=== PATIENT | female | born 1995 | race Caucasian/White ===

== ENCOUNTER 2017-06-13 08:37 | Emergency (ER) | payer BC, OTHER ==
[~2017-06-13 08:37] MED LIST: CEPH500 PO; PERC5TAB12 PO; POTA1TAB4 PO
[2017-06-13 09:00] VITALS: RESP 16; TEMP 98.8
[2017-06-13] MEDS ORDERED: ACETAMINOPHEN 325 MG TAB PO ONE (09:15)
--- NOTE | 2017-06-13 09:43 | PD ---
HPI Chief Complaint headache, nausea Date Seen: Jun 13, 2017 (Kevin Cervantes MD, R3) Travel History International Travel<30 Days: No Contact w/Intl Traveler<30Days: No (Kevin Cervantes MD, R3) History of Present Illness HPI Ms. Narayanan is a 21 yo at 30 1/7 weeks GA (LIVIA 08/21/2017) patient of Caridad Barrera who presents with nausea and headache. Patient reports that she began feeling "sick" yesterday evening after appointment with Caridad Barrera; she vomited one time at approximately 8 PM. Patient has since felt nauseous. Yesterday evening, she also began to have a headache which she describes as on both sides of her head in temporal area. Patient reports chronic visual blurriness but none associated with headache. Patient does not report any history of gestational her chronic hypertension. Patient does not report any extremity numbness or tingling. No neck stiffness. No fevers. Patient does not report any abdominal pain in association with nausea. Patient has normal stools. No recent sick contacts. Patient has not attempted to alleviate headaches yet; she was out of Tylenol. Patient reports history of pyelonephritis/urinary tract infections years prior but does not report any recent urinary symptoms. Patient does not report chest pain, shortness of breath, or leg swelling. Patient reports normal movement. No vaginal bleeding/discharge. Patient reports that she has had an unremarkable with exception of being told by Caridad Barrera that she has a fundal height discrepancy; patient plans to have repeat ultrasonography performed today at outpatient center. records reviewed: Hgb 9.4 (05/31/17), Blood A+, no infectious disease history (HIV, Hep B, Syphilis, or C/GC). US 04/23 (~22-23 weeks GA)- EFW 544.5gm, 49th%ile, BARBARA 10.5cm Weeks Gestation: 30 Para: 2 : 3 (Kevin Cervantes MD, R3) History Past Medical History Narrative Medical Prior UTIs requiring hospitalization/pyelonephritis (Kevin Cervantes MD, R3) Obstetric History Obstetric History 002 Two postterm pregnancies 2 and 5 years prior (Kevin Cervantes MD, R3) Past Surgical History Narrative Surgical Cholecystectomy 2012 (Kevin Cervantes MD, R3) Family History Narrative Family History Unspecified cervical cancer (Kevin Cervantes MD, R3) Social History Narrative Social History Patient denies current alcohol, tobacco use, or illicit drug use Patient reports marijuana use earlier in (Kevin Cervantes MD, R3) Allergies-Medications (Allergen,Severity, Reaction): Coded Allergies: ibuprofen (Unverified Allergy, Severe, 01/16/17) LIVER ENZYMES WENT CRAZY Home Meds Active Scripts Ondansetron Odt (Zofran Odt) 4 Mg Tab, 4 MG SL Q8HR Y for Nausea/Vomiting, #10 TAB 0 Refills Prov:Kevin Cervantes MD, R3 06/13/17 Acetaminophen (Tylenol) 325 Mg Tab, 650 MG PO Q6H Y for HEADACHE, #30 TAB 0 Refills Prov:Kevin Cervantes MD, R3 06/13/17 Cephalexin Monohydrate (Keflex 500 mg Cap) 500 Mg Cap, 500 MG PO TID for 14 Days , CAP Prov:Jean Rosario MD 08/05/15 Oxycodone-Acetaminophen 5-325 mg (Percocet 5-325 mg) Oxycodone 5/325 Acetaminophen Tab, 1-2 TAB PO Q6H Y for PAIN, #15 TAB Prov:Jean Rosario MD 08/05/15 Potassium Chloride (K-Tab) 20 Meq Tab, 1 TAB PO BID for 2 Days Prov:Jean Rosario MD 08/05/15 Review of Systems General / Constitutional: No: Fever, Chills Eyes: Blurred Vision (chronic) HENT: Headaches (recent) Cardiovascular: No: Chest Pain or Discomfort Respiratory: No: Short of Breath Gastrointestinal: Nausea, Vomiting (1 last night) Genitourinary: No: Urgency, Dysuria Skin: No Rash, No Itching Neurologic: No: Weakness, Dizziness Psychiatric: No: Anxiety, Depression (Kevin Cervantes MD, R3) Physical Exam T98.8 BP 125/81 HR 94 Narrative GENERAL: Well-nourished, well-developed patient. SKIN: Warm and dry. HEAD: Normocephalic and atraumatic. EYES: No scleral icterus. No injection or drainage. EOM grossly I. PERRLA. NECK: No neck stiffness. No lymphadenopathy or thyromegaly CARDIOVASCULAR: Regular rate and rhythm without murmurs. Normal peripheral perfusion RESPIRATORY: CTAB, normal rate ABDOMEN/GI: Abdomen soft, non-tender, bowel sounds present Gravid EXTREMITIES: No calf asymmetry or LE edema NEUROLOGICAL: Awake and alert. Motor and sensory function grossly within normal limits. GENITOURINARY: Uterine Contractions: None on CTG FHT's: Category: 1 Baseline: 130 Reactive: Y Variability: Mod Decels: None (Kevin Cervantes MD, R3) Data Data Vital Signs Reviewed: Yes (Kevin Cervantes MD, R3) MDM Medical Record Reviewed: Yes Narrative Course / MDM 21 yo at 30 1/7 weeks GA patient of Caridad Barrera who presents with nausea and headache -Cat 1 rhythm -No suggestion of contractions on CTG -Physical exam benign; no neurologic symptoms -Normotensive (125/81) Assessment/Plan: Headache Impression: Patient normotensive. Bilateral/temporal headaches with benign exam ; seemingly suggestive of tension headaches -Will give Tylenol 650mg x1 Nausea/vomiting Impression: Nausea resolved; vomit x1 episode last night -Since symptoms resolved, patient deemed stable for follow-up with Caridad Barrera routinely -Patient encouraged to hydrate aggressively during Review of records: -Mild anemia (Hgb <10.5)- will advise ferrous sulfate 325mg daily -BARBARA 10.5 cm on 04/23 US; advise follow-up US (patient states she will get today ) Plan Interval: Patient reported vomiting her Tylenol was was given Zofran 4mg ODT Patient reported improvement in headache Updated plan: Patient feels safe for discharge home on Tylenol and limited Zofran. She will consider Tums/Ranitidine for acid reflux and will return to OB ED if nausea/ vomiting recurs or if headache recurs/worsens. She will take Tylenol for headache at home DW Dr. Mercado and Dr. Wall (Kevin Cervantes MD, R3) Attending Attestation The patient was seen and examined with the resident and I performed all gtz decision making. (Pepper Mercado MD) Diagnosis Diagnosis: Primary Impression: 30 weeks gestation of Additional Impressions: Headache in Nausea and vomiting Disposition: 01 DISCHARGE HOME Condition: Stable Scripts Ondansetron Odt (Zofran Odt) 4 Mg Tab 4 MG SL Q8HR Y for Nausea/Vomiting, #10 TAB 0 Refills Prov: Kevin Cervantes MD, R3 06/13/17 Acetaminophen (Tylenol) 325 Mg Tab 650 MG PO Q6H Y for HEADACHE, #30 TAB 0 Refills Prov: Kevin Cervantes MD, R3 06/13/17 Patient Instructions: General Instructions, Nausea and Vomiting in ( ED) Kevin Cervantes MD, R3 Jun 13, 2017 09:43 Pepper Mercado MD Jun 20, 2017 15:02
[2017-06-13] MEDS ORDERED: ONDANSETRON ODT 4 MG TAB PO ONE (10:15)
[2017-06-13] MEDS ORDERED: TYLE325T PO (10:24)
[2017-06-13] MEDS ORDERED: ZOFR4TAB3 SL (10:24)
== END 2017-06-13 11:15 | disposition home or self-care (01) ==
LOC: HOBED 08:37
DX: R51 Headache (principal); O26.893 Other specified pregnancy related conditions, third trimester; O99.013 Anemia complicating pregnancy, third trimester; R11.2 Nausea with vomiting, unspecified; Z3A.30 30 weeks gestation of pregnancy
CPT/HCPCS: 99283

== ENCOUNTER → 2017-06-28 | Emergency (ER) | payer BC, OTHER ==
[~2017-06-28] MED LIST changes: +ACETAMINOPHEN 500 MG CPLT PO ONE; +PRENTAB7 PO; +TYLE325T PO; +ZOFR4TAB3 SL
--- NOTE | 2017-06-28 12:49 | PD ---
HPI Chief Complaint Cramping and decreased movement Date Seen: Jun 28, 2017 Time Seen: 12:45 Travel History International Travel<30 Days: No Contact w/Intl Traveler<30Days: No Known Affected Area: No History of Present Illness HPI Patient is a 22-year-old at 32 weeks and 2 days who presents to OB triage complaining of lower abdominal cramping and decreased movement since waking up this morning. She established care with Caridad Barrera at 9 weeks gestation. Patient reports cramping in her lower abdomen. Cramps last for approximately 45-60 seconds. She experiences the cramping pain irregularly. Pain has increased in intensity throughout the morning. Patient reports not feeling fetus move at all this morning. Patient has felt fetus move since arriving at OB triage. Patient denies vaginal bleeding and gush of fluid. She reports thick yellow-white discharge. She denies nausea and vomiting. She denies diarrhea and constipation. She reports a normal bowel movement this morning. Patient denies back pain. Patient denies fever. Weeks Gestation: 32 Para: 2 : 3 History Past Medical History Narrative Medical Depression and anxiety Obstetric History Obstetric History G1 - full-term, induced vaginal delivery G2 - full-term, induced vaginal delivery G3 - current Past Surgical History Narrative Surgical Cholecystectomy Family History Family History: Negative Social History Alcohol Use: No Tobacco Use: No Substance Abuse: Yes (marijuana use during first trimester; last use 2 month ago ) Allergies-Medications (Allergen,Severity, Reaction): Coded Allergies: ibuprofen (Unverified Allergy, Severe, 01/16/17) LIVER ENZYMES WENT CRAZY Home Meds Active Scripts Pnv No.95/Ferrous Fum/Folic AC ( Vitamins Tablet) 28 Mg Iron-800 Mcg Tablet, 1 TAB PO DAILY, #30 TAB Prov:Meghan Morgan MD R1 06/28/17 Review of Systems Except as stated in HPI: all other systems reviewed are Neg Physical Exam Narrative GENERAL: Well-nourished, well-developed patient. SKIN: Warm and dry. HEAD: Normocephalic and atraumatic. EYES: No scleral icterus. No injection or drainage. ENT: No nasal drainage noted. Mucous membranes pink. Airway patent. NECK: Supple, trachea midline. No JVD. CARDIOVASCULAR: Regular rate and rhythm without murmurs, gallops, or rubs. RESPIRATORY: Breath sounds equal bilaterally. No accessory muscle use. ABDOMEN/GI: Abdomen soft, non-tender, bowel sounds present, no rebound, no guarding Gravid to 32 weeks size GENITOURINARY: External Genitalia: intact and normal in appearance Dilatation: Closed Effacement: Thick Membranes: Intact Uterine Contractions: Irregular FHT's: Category: 1 Baseline: 140 Reactive: + Variability: Moderate Decels: None EXTREMITIES: No cyanosis or edema. BACK: Nontender without obvious deformity. No CVA tenderness. NEUROLOGICAL: Awake and alert. Motor and sensory grossly within normal limits. Five out of 5 muscle strength in all muscle groups. Normal speech. Data Data Vital Signs Reviewed: Yes Orders Orders Urinalysis - C+S If Indicated (06/28/17 12:46) Vital Signs (Adult) .ON ADMISSION (06/28/17 12:46) ^ Labor Status (06/28/17 12:46) ^ Non Stress Test (06/28/17 12:46) ^ Hydration (06/28/17 12:46) MDM Plan Patient is a 22-year-old at 32 weeks and 2 days who presents to OB triage complaining of lower abdominal cramping and decreased movement since waking up this morning. She established care with Caridad Barrera at 9 weeks gestation. * Continuous monitoring - see PE. * Encourage oral hydration. * UA - grossly within normal limits. * Discharge home. * Tylenol and Fentanyl for pain control. Discussed with OB hospitalist. Diagnosis Diagnosis: Primary Impression: Abdominal cramping Additional Impression: Decreased movement Disposition: DISCHARGE HOME Condition: Stable Scripts Pnv No.95/Ferrous Fum/Folic AC ( Vitamins Tablet) 28 Mg Iron-800 Mcg Tablet 1 TAB PO DAILY, #30 TAB Prov: Meghan Morgan MD R1 06/28/17 Meghan Morgan MD R1 Jun 28, 2017 12:49
[2017-06-28 13:54] LABS: BILIRUBIN, URINE NEG (NEG); BLOOD, URINE NEG (NEG); GLUCOSE,URINE NEG (NEG); KETONE, URINE NEG (NEG); MUCUS URINE FEW /lpf (OCC); NITRITE,URINE NEG (NEG); SQUAMOUS EPITHELIAL CELL URINE 3 /hpf (0-5); URINE COLOR LIGHT-YELLOW (YELLW/STRAW); URINE LEUKOCYTE ESTERASE SMALL (NEG)
[2017-06-28 14:00] LABS: BACTERIA, URINE RARE /hpf
== END | disposition home or self-care (01) ==
LOC: HOBED 10:43
DX: O26.893 Other specified pregnancy related conditions, third trimester (principal); O36.8130 Decreased fetal movements, third trimester, not applicable or unspecified; R10.9 Unspecified abdominal pain; Z3A.32 32 weeks gestation of pregnancy
CPT/HCPCS: 81001; 96372; 99284; J3010

== ENCOUNTER 2017-07-06 21:08 | Emergency (ER) | payer BC, OTHER ==
[~2017-07-06 21:08] MED LIST changes: -ACETAMINOPHEN 500 MG CPLT PO ONE; -CEPH500 PO; -PERC5TAB12 PO; -POTA1TAB4 PO; -TYLE325T PO; -ZOFR4TAB3 SL
--- NOTE | 2017-07-06 22:03 | PD ---
HPI Chief Complaint Back pain ("kidney pain") Travel History International Travel<30 Days: No Contact w/Intl Traveler<30Days: No Known Affected Area: No History of Present Illness HPI 22-year-old 002, IUP at 33.3 care complicated by anxiety, depression, history of kidney infection The patient presents complaining of the onset of bilateral "kidney" pain. However the patient points to her lower lumbar area bilaterally. The patient reports that she has a history of kidney infections but has never had a kidney stone. She reports that the pain initially started at 12 PM and improved however returned at 4:30 to 5 PM. She reports the pain is bilateral but worse on the left comparative to the right. She reports that she took Tylenol at 5 PM but the pain has returned. She reports that she is certain she has a kidney infection. She reports that if she holds a fit fist under her back and this helps otherwise there are no other aggravating, alleviating, or attempted treatments than those discussed. She denies any fever, chills, nausea, vomiting. She denies any other urinary symptoms. She denies any leaking of fluid or vaginal bleeding. She denies any painful contractions or cramping. She reports good movement. The patient stated to the nurse that she is planning to have a primary delivery so she can have a bilateral tubal ligation. She has not discussed this with Caridad Barrera her obstetrical provider. She reports that she has called here "a couple of" times and been told that this would be possible. She has not however has not spoken with the physician about this. Weeks Gestation: 33 Para: 2 : 3 History Past Medical History Narrative Medical Anxiety, depression, history of kidney infection Obstetric History Obstetric History 002 2 Past Surgical History Narrative Surgical Cholecystectomy Family History Family History: Negative Social History Alcohol Use: No Tobacco Use: No Substance Abuse: No Allergies-Medications (Allergen,Severity, Reaction): Coded Allergies: ibuprofen (Unverified Allergy, Severe, 01/16/17) LIVER ENZYMES WENT CRAZY Home Meds Active Scripts Pnv No.95/Ferrous Fum/Folic AC ( Vitamins Tablet) 28 Mg Iron-800 Mcg Tablet, 1 TAB PO DAILY, #30 TAB Prov:Meghan Morgan MD R1 06/28/17 Review of Systems Except as stated in HPI: all other systems reviewed are Neg General / Constitutional: No: Fever, Weight Gain, Weight Loss, Chills, Other Eyes: No: Diploplia, Blurred Vision, Visual changes, Pain, Photophobia, Other HENT: No: Headaches, Vertigo, Dental Difficulties, Lightheadedness, Other Cardiovascular: No: Irregular Rhythm, Chest Pain or Discomfort, Palpitations, Tachycardia, Syncope, Varicosities, Edema, Cyanosis, Other Respiratory: No: Cough, Short of Breath, Wheezing, Other Gastrointestinal: No: Nausea, Vomiting, Diarrhea, Abdominal Pain, Hematemesis, Hematochezia, Constipation, Changes in Bowel Habits, Indigestion, Loss of Appetite, Other Genitourinary: Other (pain), No: Urgency, Frequency, Dysuria, Nocturia, Hematuria, Decreased Urinary Output, Oliguria, Hesitancy, Dribbling, Incontinence, Pelvic Pain, Dyspareunia, Discharge, Menorrhagia, Vaginal Bleeding Musculoskeletal: Pain, No: Limited ROM, Weakness, Cramping, Edema, Other Skin: No Rash, No Itching, No Dryness, No Lumps, No Change in Pigmentation, No Change in Nails, No Alopecia, No Lesions, No Breast Lumps, No Breast Tenderness , No Breast Swelling, No Other Neurologic: No: Weakness, Dizziness, Syncope, Focal Abnormalities, Coordination Problem, Headache, Slurred Speech, Seizures, Other Psychiatric: No: Anxiety, Depression, Suicidal Ideations, Disorder of Thought, Mood Disorder, Substance Abuse, Homicidal Ideation, Other Endocrine: No: Heat Intolerance, Cold Intolerance, Polydipsia, Polyuria, Other Hematologic/Lymphatic: No Easy Bruising, No Lymph Node Enlargement, No Other Physical Exam Narrative GENERAL: Well-nourished, well-developed patient. SKIN: Warm and dry. HEAD: Normocephalic and atraumatic. EYES: No scleral icterus. No injection or drainage. ENT: No nasal drainage noted. Mucous membranes pink. Airway patent. NECK: Supple, trachea midline. No JVD. CARDIOVASCULAR: Regular rate and rhythm without murmurs, gallops, or rubs. RESPIRATORY: Breath sounds equal bilaterally. No accessory muscle use. BREASTS: Deferred ABDOMEN/GI: Abdomen soft, non-tender, bowel sounds present, no rebound, no guarding Gravid GENITOURINARY: Deferred FHT's: heart tones in the 120s with moderate long-term variability, good accelerations, no decelerations noted. This is a category 1 heart rate tracing and reactive NST. EXTREMITIES: No cyanosis or edema. BACK: Nontender without obvious deformity. No CVA tenderness. The patient does have lower lumbar tenderness with palpation, but no CVA tenderness was noted. NEUROLOGICAL: Awake and alert. Motor and sensory grossly within normal limits. Five out of 5 muscle strength in all muscle groups. Normal speech. Musculoskeletal: Grossly normal range of motion, gait, muscle strength Psychiatric: Grossly normal memory and affect Data Data Orders Orders Vital Signs (Adult) .ON ADMISSION (07/06/17 22:) ^ Labor Status (07/06/17:) Urinalysis - C+S If Indicated (07/06/17:) ^ Non Stress Test (07/06/17:) Ob/Psych Drug Screen, Urine (07/06/17:) MDM Plan Assessment/plan: 1. IUP at 33.3 2. Bilateral lumbar pain: No evidence of renal nephrolithiasis or pyelonephritis, no evidence of urinary tract infection. On physical examination the pain appears to be musculoskeletal in etiology. Discussed comfort measures. Advised patient to seek further evaluation treatment in the ED, patient declined. 3. UA: Negative, no evidence of pyelonephritis or nephrolithiasis 4. Reassuring testing with reactive NST and category 1 heart rate tracing. FHR reassuring and appropriate for gestational age. kick counts daily. 5. Patient desires primary delivery with permanent surgical sterilization, discussed with patient that request for permanent surgical sterilization is not an indication for primary delivery. Discussed the many insurance comings will not reimburse for an elective primary delivery without a medical indication. Discussed that the patient needs to discuss this further with her primary obstetrical provider. 6. Follow-up with primary OB in 2-3 days or sooner if needed Diagnosis Diagnosis: Primary Impression: 33 weeks gestation of Additional Impression: Musculoskeletal back pain Disposition: 01 DISCHARGE HOME Condition: Pepper Jorgensen MD Jul 06, 2017 22:03
[2017-07-06 22:35] LABS: BILIRUBIN, URINE NEG (NEG); BLOOD, URINE NEG (NEG); GLUCOSE,URINE NEG (NEG); KETONE, URINE NEG (NEG); NITRITE,URINE NEG (NEG); SQUAMOUS EPITHELIAL CELL URINE 1 /hpf (0-5); URINE COLOR LIGHT-YELLOW (YELLW/STRAW); URINE LEUKOCYTE ESTERASE NEG (NEG)
== END 2017-07-07 03:38 | disposition home or self-care (01) ==
LOC: HOBED 21:08
DX: O26.893 Other specified pregnancy related conditions, third trimester (principal); M54.5 Low back pain; O99.343 Other mental disorders complicating pregnancy, third trimester; F41.9 Anxiety disorder, unspecified; F32.9 Major depressive disorder, single episode, unspecified; Z3A.33 33 weeks gestation of pregnancy; Z88.6 Allergy status to analgesic agent
CPT/HCPCS: 59025; 80307; 81001; 99283; G0481

== ENCOUNTER 2017-08-13 00:12 | Inpatient (IN) | payer OTHER ==
[2017-08-13] VITALS (86 sets, daily range): BP systolic 97–123; BP diastolic 55–86; PULSE 80–120; RESP 16–20; TEMP 97.8–98.2; O2SAT 96–100
[~2017-08-13] VITALS: Ht 172.7 cm; Wt 81.6 kg
--- NOTE | 2017-08-13 01:01 | PD ---
HPI Chief Complaint Contractions Date Seen: Aug 13, 2017 Time Seen: 00:55 Travel History International Travel<30 Days: No Contact w/Intl Traveler<30Days: No Known Affected Area: No History of Present Illness HPI 22-year-old 3 para 2 at 39 weeks gestation who comes for evaluation of contractions. She denies leakage of fluid or bleeding. She reports good movement. History Past Medical History Narrative Medical Anemia Obstetric History Obstetric History 2 prior vaginal deliveries This has been uncomplicated with the exception of anemia. She receives care at [facility]. Past Surgical History Narrative Surgical Cholecystectomy Family History Family History: Negative Social History Alcohol Use: No Tobacco Use: No Substance Abuse: No Allergies-Medications (Allergen,Severity, Reaction): Coded Allergies: No Known Allergies (Verified Allergy, Unknown, 08/13/17) Home Meds Active Scripts Pnv No.95/Ferrous Fum/Folic AC ( Vitamins Tablet) 28 Mg Iron-800 Mcg Tablet, 1 TAB PO DAILY, #30 TAB Prov:Meghan Morgan MD R1 06/28/17 Review of Systems Except as stated in HPI: all other systems reviewed are Neg Physical Exam Narrative GENERAL: Well-nourished, well-developed patient. SKIN: Warm and dry. HEAD: Normocephalic and atraumatic. EYES: No scleral icterus. No injection or drainage. ENT: No nasal drainage noted. Mucous membranes pink. Airway patent. NECK: Supple, trachea midline. No JVD. CARDIOVASCULAR: Regular rate and rhythm without murmurs, gallops, or rubs. RESPIRATORY: Breath sounds equal bilaterally. No accessory muscle use. ABDOMEN/GI: Abdomen soft, non-tender, bowel sounds present, no rebound, no guarding Gravid to [-] weeks size Fundal Height: [-] GENITOURINARY: External Genitalia: intact and normal in appearance BUS glands: [-Negative] Cervix: [-] Dilatation: [Fingertip-] Effacement: [-70] Station: [--2] Presentation: [Vertex-] Membranes: [intact ] Uterine Contractions: [Every 3 to 4-] FHT's: Category: [1-] Baseline: [-] Reactive: [-] Variability: [-] Decels: [-] EXTREMITIES: No cyanosis or edema. BACK: Nontender without obvious deformity. No CVA tenderness. NEUROLOGICAL: Awake and alert. Motor and sensory grossly within normal limits. Five out of 5 muscle strength in all muscle groups. Normal speech. MDM Medical Record Reviewed: Yes Narrative Course / MDM Assessment: 39 week multipara with probable labor prodrome, anemia Plan: Reevaluate for cervical change in 1-2 hours Addendum. Cervical reexamination demonstrates no change. Her contractions are continuing and becoming more uncomfortable. She will be admitted for labor/ pain management. Leo Rebolledo MD Aug 13, 2017 01:01
[2017-08-13] MEDS ORDERED: NS 1000 ML IV PRN (02:15)
[2017-08-13] MEDS ORDERED: OXYTOCIN 30 UNITS 500ML PREMIX IV ONE (02:15)
[2017-08-13] MEDS ORDERED: NS 500 ML BOLUS IV PRN (02:15)
[2017-08-13] MEDS ORDERED: CITRIC ACID-SODIUM CITRATE LIQ 30 ML UDC PO SCH (02:15)
[2017-08-13] MEDS ORDERED: ONDANSETRON HCL 4 MG/2 ML VIAL IV PUSH PRN (02:15)
[2017-08-13] MEDS ORDERED: LIDOCAINE HCL 1% 50 ML VIAL INFIL PRN (02:15)
[2017-08-13] MEDS ORDERED: LACTATED RINGER'S 1000 ML BOLUS IV PRN (02:15)
[2017-08-13] MEDS ORDERED: LIDOCAINE HCL 1% 50 ML VIAL I-DERMAL PRN (02:15)
[2017-08-13] MEDS ORDERED: MINERAL OIL 10 ML VIAL TOPICAL PRN (02:15)
[2017-08-13] MEDS: LACTATED RINGER'S 1000 ML IV SCH ×3 (02:19→12:40)
[2017-08-13 02:33] LABS: BACTERIA, URINE RARE /hpf; BILIRUBIN, URINE NEG (NEG); BLOOD, URINE NEG (NEG); GLUCOSE,URINE NEG (NEG); KETONE, URINE NEG (NEG); NITRITE,URINE NEG (NEG); SQUAMOUS EPITHELIAL CELL URINE 1 /hpf (0-5); URINE COLOR LIGHT-YELLOW (YELLW/STRAW); URINE LEUKOCYTE ESTERASE MOD (NEG)
[2017-08-13 02:35] LABS: AUTOMATED NEUTROPHIL # 15.3 TH/MM3 (1.8-7.7); BASOPHIL # 0.1 TH/MM3 (0-0.2); BASOPHIL % 0.3 % (0.0-2.0); EOSINOPHIL # 0.1 TH/MM3 (0-0.4); EOSINOPHIL % 0.4 % (0.0-4.0); HEMATOCRIT 29.9 % (35.0-46.0); HEMOGLOBIN 10.3 GM/DL (11.6-15.3); LYMPH % 12.7 % (9.0-44.0); LYMPHOCYTE # 2.4 TH/MM3 (1.0-4.8); MEAN CELL VOLUME 90.8 FL (80.0-100.0); MEAN CORPUSCULAR HEMOGLOBIN 31.2 PG (27.0-34.0); MEAN CORPUSCULAR HGB CONC 34.4 % (32.0-36.0); MEAN PLATELET VOLUME 8.5 FL (7.0-11.0); MONO % 5.2 % (0.0-8.0); NEUT % 81.4 % (16.0-70.0); PLATELET COUNT 272 TH/MM3 (150-450); RED CELL DISTRIBUTION WIDTH 14.4 % (11.6-17.2); WHITE BLOOD COUNT 18.8 TH/MM3 (4.0-11.0)
--- NOTE | 2017-08-13 06:58 | HHI.HP ---
History & Physical H&P Patient Name: Inna Narayanan Unit Number: [id number] Date of : 1995 Patient Status: Admitted Inpatient Attending Doctor: Leo Rebolledo MD HPI HPI Chief Complaint Contractions Date Seen: Aug 13, 2017 Time Seen: 00:55 Travel History International Travel<30 Days: No Contact w/Intl Traveler<30Days: No Known Affected Area: No History of Present Illness HPI 22-year-old 3 para 2 at 39 weeks gestation who comes for evaluation of contractions. She denies leakage of fluid or bleeding. She reports good movement. History (Limited) History Past Medical History Narrative Medical Anemia Obstetric History Obstetric History 2 prior vaginal deliveries This has been uncomplicated with the exception of anemia. She receives care at [facility]. Past Surgical History Narrative Surgical Cholecystectomy Family History Family History: Negative Social History Alcohol Use: No Tobacco Use: No Substance Abuse: No Allergies-Medications Allergies-Medications (Allergen,Severity, Reaction): Coded Allergies: No Known Allergies (Verified Allergy, Unknown, 08/13/17) Home Meds Active Scripts Pnv No.95/Ferrous Fum/Folic AC ( Vitamins Tablet) 28 Mg Iron-800 Mcg Tablet, 1 TAB PO DAILY, #30 TAB Prov:Meghan Morgan MD R1 06/28/17 ROS Review of Systems Except as stated in HPI: all other systems reviewed are Neg Physical Exam Physical Exam Narrative GENERAL: Well-nourished, well-developed patient. SKIN: Warm and dry. HEAD: Normocephalic and atraumatic. EYES: No scleral icterus. No injection or drainage. ENT: No nasal drainage noted. Mucous membranes pink. Airway patent. NECK: Supple, trachea midline. No JVD. CARDIOVASCULAR: Regular rate and rhythm without murmurs, gallops, or rubs. RESPIRATORY: Breath sounds equal bilaterally. No accessory muscle use. ABDOMEN/GI: Abdomen soft, non-tender, bowel sounds present, no rebound, no guarding Gravid to [-] weeks size Fundal Height: [-] GENITOURINARY: External Genitalia: intact and normal in appearance BUS glands: [-Negative] Cervix: [-] Dilatation: [Fingertip-] Effacement: [-70] Station: [--2] Presentation: [Vertex-] Membranes: [intact ] Uterine Contractions: [Every 3 to 4-] FHT's: Category: [1-] Baseline: [-] Reactive: [-] Variability: [-] Decels: [-] EXTREMITIES: No cyanosis or edema. BACK: Nontender without obvious deformity. No CVA tenderness. NEUROLOGICAL: Awake and alert. Motor and sensory grossly within normal limits. Five out of 5 muscle strength in all muscle groups. Normal speech. Data Data MDM MDM Medical Record Reviewed: Yes Narrative Course / MDM Assessment: 39 week multipara with probable labor prodrome, anemia Plan: Reevaluate for cervical change in 1-2 hours Addendum. Cervical reexamination demonstrates no change. Her contractions are continuing and becoming more uncomfortable. She will be admitted for labor/ pain management. Leo Rebolledo MD Aug 13, 2017 01:01 Leo Rebolledo MD Aug 13, 2017 06:58
[2017-08-13] MEDS ORDERED: OXYTOCIN 30 UNITS-500ML PREMIX 500 ML IV PRN (07:00)
[2017-08-13] MEDS ORDERED: fentaNYL 2MCG-BUPIV 0.125% INJ 100 ML ONE (08:09)
--- NOTE | 2017-08-13 10:15 | PD.LABORPN ---
Subjective Subjective Patient is comfortable and doing well. No complaints. Spoke to patient about AROM and placement of IUPC. These were performed. Objective Vital Signs Vital Signs Date Time Temp Pulse Resp B/P (MAP) Pulse Ox O2 Delivery O2 Flow Rate FiO2 08/13/17 09:36 99 18 115/81 (92) 08/13/17 09:00 100 122/73 (89) 08/13/17 08:45 16 08/13/17 08:34 87 112/73 (86) 08/13/17 07:27 97.8 18 08/13/17 07:26 95 115/70 (85) 08/13/17 05:30 18 08/13/17 04:11 98.1 08/13/17 04:11 89 18 111/77 (88) Objective Pelvic Exam: Cervix: posterior Dilatation: 1 Effacement: 60 Station: -3 Presentation: vertex Membranes: ruptured, clear Uterine Contractions: q3-4min FHT's: Category: 1 Baseline: 140s Reactive: yes Variability: moderate Decels: none Assessment/Plan Problem List: (1) Intrauterine ICD Codes: Z33.1 - state, incidental Status: Acute Assessment and Plan Ms. Narayanan is a 22yo at 38/6 weeks gestation who presented in labor. Patient is currently /3. -Currently on Pitocin -AROM was achieved with clear fluids -IUPC was placed SDW Dr. Hank Scott,Amie LIZARRAGA R1 Aug 13, 2017 10:15
[2017-08-13] MEDS ORDERED: ePHEDrine/NS 25 MG/5 ML SYRINGE ONE (10:45)
[2017-08-13] MEDS ORDERED: NO SYSTEM NARCOTICS PRN (12:45)
[2017-08-13] MEDS ORDERED: ePHEDrine/NS 25 MG/5 ML SYRINGE IV PUSH PRN (12:45)
[2017-08-13] MEDS ORDERED: DO NOT ADMINISTER ANTICOAGULANTS PRN (12:45)
[2017-08-13] MEDS ORDERED: fentaNYL 2MCG-BUPIV 0.125% 100 ML EPIDURAL SCH (12:45)
--- NOTE | 2017-08-13 14:21 | PD.LABORPN ---
Subjective Subjective Pt is doing well. States that she is comfortable. She received her epidural. Objective Vital Signs Vital Signs Date Time Temp Pulse Resp B/P (MAP) Pulse Ox O2 Delivery O2 Flow Rate FiO2 08/13/17 14:00 20 08/13/17 13:55 89 08/13/17 13:50 96 08/13/17 13:46 95 107/68 (81) 08/13/17 13:45 98 08/13/17 13:40 88 08/13/17 13:35 88 08/13/17 13:30 91 101/64 (76) 08/13/17 13:30 96 08/13/17 13:25 90 08/13/17 13:20 94 08/13/17 13:15 96 107/73 (84) 08/13/17 13:15 95 08/13/17 13:10 90 08/13/17 13:05 96 08/13/17 13:00 97.8 20 08/13/17 13:00 95 08/13/17 13:00 93 108/76 (87) 08/13/17 12:55 95 08/13/17 12:50 84 08/13/17 12:45 85 105/68 (80) 08/13/17 12:45 93 08/13/17 12:40 87 08/13/17 12:35 84 08/13/17 12:30 90 08/13/17 12:30 86 105/80 (88) 08/13/17 12:30 18 08/13/17 12:25 85 08/13/17 12:20 83 08/13/17 12:20 92 109/69 (82) 08/13/17 12:15 86 08/13/17 12:15 89 108/73 (85) 08/13/17 12:10 90 08/13/17 12:10 93 108/72 (84) 08/13/17 12:05 90 08/13/17 12:05 99 105/67 (80) 08/13/17 12:00 89 08/13/17 12:00 94 107/71 (83) 08/13/17 11:55 95 105/74 (84) 08/13/17 11:55 98 08/13/17 11:50 98 109/76 (87) 08/13/17 11:50 89 08/13/17 11:45 105 08/13/17 11:45 87 100/65 (77) 08/13/17 11:40 95 103/67 (79) 08/13/17 11:40 95 08/13/17 11:35 80 106/69 (81) 08/13/17 11:35 105 08/13/17 11:30 20 08/13/17 11:30 97.8 08/13/17 11:30 90 106/68 (81) 08/13/17 11:25 98 109/65 (80) 08/13/17 11:25 88 08/13/17 11:20 99 08/13/17 11:20 95 106/64 (78) 08/13/17 11:15 88 108/71 (83) 08/13/17 11:15 93 08/13/17 11:10 87 08/13/17 11:10 90 08/13/17 11:10 108/63 (78) 08/13/17 11:05 120 08/13/17 11:05 89 100/80 (87) 08/13/17 11:00 94 116/63 (80) 08/13/17 11:00 81 08/13/17 10:55 97 122/73 (89) 08/13/17 10:55 95 08/13/17 10:50 101 08/13/17 10:50 94 112/74 (87) 08/13/17 10:45 94 117/74 (88) 08/13/17 10:45 99 08/13/17 10:40 98 112/69 (83) 08/13/17 10:37 97 123/72 (89) 08/13/17 09:36 99 18 115/81 (92) 08/13/17 09:00 100 122/73 (89) 08/13/17 08:45 16 08/13/17 08:34 87 112/73 (86) 08/13/17 07:27 97.8 18 08/13/17 07:26 95 115/70 (85) Objective Pelvic Exam: Cervix: mid position Dilatation: 6 Effacement: 90 Station: -1 Presentation: vertex Membranes: ruptured Uterine Contractions: q3min FHT's: Category: 1 Baseline: 130s Reactive: yes Variability: moderate Decels: none Assessment/Plan Problem List: (1) Intrauterine ICD Codes: Z33.1 - state, incidental Status: Acute Assessment and Plan Ms. Narayanan is a 22yo at 38/6 weeks gestation who presented in labor. Patient is currently -Pt received Epidural. -Currently on Pitocin -AROM was achieved with clear fluids -IUPC was placed Amie Scott MD R1 Aug 13, 2017 14:21
[2017-08-13] MEDS ORDERED: MEASLES, MUMPS, RUBELLA VACCINE 0.5 ML VIAL SQ ONE (16:00)
[2017-08-13] MEDS ORDERED: DIPHTH/TETANUS/ACEL PERTUSSIS (BOOSTER) 0.5 ML VIAL/PFS IM ONE (16:00)
--- NOTE | 2017-08-13 16:14 | PD.OB.DELI ---
Weeks gestation: 38 Artificial rupture of membrane: Yes Anesthesia: Epidural Episiotomy: None Vaginal Delivery: Normal Presentation: Occiput anterior Nuchal Cord: x1 Delayed cord clamping (45 sec): No : Female, Single Delivery date: Aug 13, 2017 Delivery time: 16:08 One Minute : 8 Five Minute : 9 Weight: 3140g Placenta: Spontaneous delivery, Intact, 3 vessel cord Laceration: Vaginal laceration Estimated blood loss: 100 Additional Information superficial laceration and hemostatic. Did not need sutures. Amie Scott MD R1 Aug 13, 2017 16:14
[2017-08-13] MEDS ORDERED: ALUMINUM/MAGNESIUM/SIMETH 30 ML CUP PO PRN (16:30)
[2017-08-13] MEDS ORDERED: DOCUSATE SODIUM 50 MG/SENNA 8.6 MG TAB PO PRN (16:30)
[2017-08-13] MEDS ORDERED: WITCH HAZEL 50%/GLYCERIN 12.5% 40 PAD JAR TOPICAL PRN (16:30)
[2017-08-13] MEDS ORDERED: ONDANSETRON ODT 4 MG TAB PO PRN (16:30)
[2017-08-13] MEDS ORDERED: ZOLPIDEM TARTRATE 5 MG TAB PO PRN (16:30)
[2017-08-13] MEDS ORDERED: SODIUM CHLORIDE 0.9% FLUSH 10 ML FLUSH IV FLUSH PRN (16:30)
[2017-08-13] MEDS ORDERED: OXYTOCIN 30 UNITS-500ML PREMIX 500 ML IV SCH (16:30)
[2017-08-13] MEDS ORDERED: BENZOCAINE 20% TOPICAL SPRAY 60 ML CAN TOPICAL PRN (16:30)
[2017-08-13] MEDS: IBUPROFEN 800 MG TAB PO PRN (17:50)
[2017-08-13] MEDS: ACETAMINOPHEN 325 MG TAB PO PRN (20:34)
[2017-08-13] MEDS ORDERED: SODIUM CHLORIDE 0.9% FLUSH 10 ML FLUSH IV FLUSH SCH (21:00)
[2017-08-14] MEDS: oxyCODONE/ACETAMINOPHEN 5 MG/325 MG TAB PO PRN ×2 (03:51→09:06)
[2017-08-14] MEDS: IBUPROFEN 800 MG TAB PO PRN ×2 (03:51→13:34)
--- NOTE | 2017-08-14 07:20 | HHI.OB ---
Subjective Remarks day # 1. AFVSS overnight. Pain well-controlled. Decreased lochia. Denies dysuria. No breast tenderness. She is feeding the baby via breast/ bottle. Appetite good. No nausea or vomiting. + flatus. 1 bowel movement. Ambulating well. Denies calf pain, shortness of breath, or cough. Otherwise, she is doing well this morning and has no other complaints. Objective Vitals/I&O Vital Signs Date Time Temp Pulse Resp B/P (MAP) Pulse Ox O2 Delivery O2 Flow Rate FiO2 08/13/17 20:00 98.2 96 08/13/17 20:00 95 20 109/70 (83) 08/13/17 18:00 103 119/77 (91) 08/13/17 18:00 18 08/13/17 17:45 94 18 110/72 (85) 08/13/17 17:31 95 102/55 (71) 08/13/17 17:30 16 08/13/17 17:17 91 114/77 (89) 08/13/17 17:15 16 08/13/17 17:00 97 116/79 (91) 08/13/17 17:00 18 08/13/17 16:45 18 08/13/17 16:45 93 110/79 (89) 08/13/17 16:30 101 111/72 (85) 08/13/17 16:26 98.1 20 08/13/17 16:20 104 115/65 (82) 08/13/17 15:55 102 100 08/13/17 15:50 105 100 08/13/17 15:45 88 08/13/17 15:45 93 122/66 (84) 98 08/13/17 15:40 103 100 08/13/17 15:35 100 100 08/13/17 15:30 110 08/13/17 15:30 104 121/86 (98) 100 08/13/17 15:25 101 100 08/13/17 15:20 100 100 08/13/17 15:15 97 110/74 (86) 08/13/17 15:15 100 100 08/13/17 15:10 103 99 08/13/17 15:05 100 08/13/17 15:05 101 08/13/17 15:00 107 122/84 (97) 3/12/18 15:00 93 18 15:00 100 18 15:00 98.1 18 08/13/17 14:55 98 08/13/17 14:50 101 08/13/17 14:45 93 114/77 (89) 08/13/17 14:45 92 08/13/17 14:40 94 18 14:35 94 08/13/17 14:30 95 08/13/17 14:30 98 117/84 (95) 08/13/17 14:25 93 08/13/17 14:20 93 08/13/17 14:15 90 114/81 (92) 08/13/17 14:15 90 08/13/17 14:10 90 08/13/17 14:05 93 08/13/17 14:00 20 08/13/17 14:00 92 08/13/17 14:00 92 97/61 (73) 08/13/17 13:55 89 08/13/17 13:50 96 08/13/17 13:46 95 107/68 (81) 08/13/17 13:45 98 08/13/17 13:40 88 18 13:35 88 18 13:30 91 101/64 (76) 08/13/17 13:30 96 08/13/17 13:25 90 08/13/17 13:20 94 08/13/17 13:15 96 107/73 (84) 08/13/17 13:15 95 08/13/17 13:10 90 08/13/17 13:05 96 08/13/17 13:00 97.8 20 08/13/17 13:00 95 08/13/17 13:00 93 108/76 (87) 08/13/17 12:55 95 18 12:50 84 18 12:45 85 105/68 (80) 08/13/17 12:45 93 18 12:40 87 18 12:35 84 08/13/17 12:30 90 08/13/17 12:30 86 105/80 (88) 08/13/17 12:30 18 08/13/17 12:25 85 08/13/17 12:20 83 08/13/17 12:20 92 109/69 (82) 08/13/17 12:15 86 08/13/17 12:15 89 108/73 (85) 08/13/17 12:10 90 08/13/17 12:10 93 108/72 (84) 08/13/17 12:05 90 08/13/17 12:05 99 105/67 (80) 08/13/17 12:00 89 08/13/17 12:00 94 107/71 (83) 08/13/17 11:55 95 105/74 (84) 08/13/17 11:55 98 08/13/17 11:50 98 109/76 (87) 08/13/17 11:50 89 08/13/17 11:45 105 08/13/17 11:45 87 100/65 (77) 08/13/17 11:40 95 103/67 (79) 08/13/17 11:40 95 08/13/17 11:35 80 106/69 (81) 08/13/17 11:35 105 08/13/17 11:30 20 08/13/17 11:30 97.8 08/13/17 11:30 90 106/68 (81) 08/13/17 11:25 98 109/65 (80) 08/13/17 11:25 88 08/13/17 11:20 99 08/13/17 11:20 95 106/64 (78) 08/13/17 11:15 88 108/71 (83) 08/13/17 11:15 93 08/13/17 11:10 87 08/13/17 11:10 90 08/13/17 11:10 108/63 (78) 08/13/17 11:05 120 08/13/17 11:05 89 100/80 (87) 08/13/17 11:00 94 116/63 (80) 08/13/17 11:00 81 08/13/17 10:55 97 122/73 (89) 08/13/17 10:55 95 08/13/17 10:50 101 08/13/17 10:50 94 112/74 (87) 08/13/17 10:45 94 117/74 (88) 08/13/17 10:45 99 08/13/17 10:40 98 112/69 (83) 08/13/17 10:37 97 123/72 (89) 08/13/17 09:36 99 18 115/81 (92) 08/13/17 09:00 100 122/73 (89) 08/13/17 08:45 16 08/13/17 08:34 87 112/73 (86) 08/13/17 07:27 97.8 18 08/13/17 07:26 95 115/70 (85) Objective Remarks GENERAL: Well-nourished, well-developed patient. CARDIOVASCULAR: Regular rate and rhythm without murmurs, gallops, or rubs. RESPIRATORY: Breath sounds equal bilaterally. No accessory muscle use. ABDOMEN/GI: Abdomen soft, non-tender. Fundus: Firm, non-tender at umbilicus. GENITOURINARY: Light to moderate bleeding. EXTREMITIES: No cyanosis or edema, non-tender, without signs of DVT. Medications and IVs Current Medications Medications (Trade) Dose Ordered Sig/Porfirio Route Start Time Stop Time Status Last Admin (NS Flush) 2 ml BID IV FLUSH 08/13/17 21:00 (NS Flush) 2 ml UNSCH PRN IV FLUSH 08/13/17 16:30 (Tylenol) 650 mg Q4H PRN PO 08/13/17 16:30 08/13/17 20:34 (Motrin) 800 mg Q8H PRN PO 08/13/17 16:30 08/14/17 03:51 (Percocet 5-325 Mg) 1 tab Q4H PRN PO 08/13/17 16:30 08/14/17 03:51 (Americaine 20% Top Spr) 1 spray Q4H PRN TOPICAL 08/13/17 16:30 08/13/17 20:31 (Tucks Pads) 1 applic QID PRN TOPICAL 08/13/17 16:30 08/13/17 20:31 (Tianna-Colace) 2 tab Q12H PRN PO 08/13/17 16:30 08/14/17 03:51 (Ambien) 5 mg HS PRN PO 08/13/17 16:30 (Mag-Al Plus Susp Liq) 15 ml Q8H PRN PO 08/13/17 16:30 (Zofran Odt) 4 mg Q6H PRN PO 08/13/17 16:30 (Flu (Quadrivalent) Vaccine Inj) 0.5 ml ONCE ONCE IM 08/15/17 10:00 08/15/17 10:01 Assessment/Plan Problem List: (1) Normal vaginal delivery ICD Codes: O80 - Encounter for full-term uncomplicated delivery Status: Acute Plan: 22 y/o who is PPD# 1 s/p . -Continue routine care. -Percocet and Motrin PRN pain. -Encouraged OOB. Advised pelvic rest for 6 wks. -Will need a f/u appt. within 6 wks. -Re: ctrl, she would like a tubal ligation. -D/c tomorrow. [facility] OB attending, Amie Zavala MD R1 Aug 14, 2017 07:20
[2017-08-14 08:00] VITALS: BP 107/75; PULSE 78; RESP 18; TEMP 98.6; O2SAT 98
[2017-08-14] MEDS: ACETAMINOPHEN 325 MG TAB PO PRN (13:33)
--- NOTE | 2017-08-14 16:06 | HHI.DCPOC ---
Discharge Care Plan Diagnosis: (1) Normal vaginal delivery Report Symptoms to Your Doctor -Temperature above 100.5 degrees -Redness, of incision or excessive or foul smelling drainage -Unusual pain or calf pain -Increased vaginal bleeding -Painful or difficulty urinating -Feelings of extreme sadness or anxiety after 2 weeks Goals to Promote Your Health * To prevent worsening of your condition and complications * To maintain your health at the optimal level Directions to Meet Your Goals Take your medications as prescribed Follow your dietary instruction Follow activity as directed Ensure plenty of rest for recovery Drink fluids for hydration Keep your appointments as scheduled Take your immunizations and boosters as scheduled If your symptoms worsen call your PCP, if no PCP go to Urgent Care Center or Emergency Room Smoking is Dangerous to Your Health. Avoid second hand smoke Call the 24-hour crisis hotline for domestic abuse at Amie Scott MD R1 Aug 14, 2017 16:06
[2017-08-14] MEDS ORDERED: IBUP1TAB7 PO (16:08)
[2017-08-15] MEDS ORDERED: INFLUENZA VIRUS VACCINE (QUADRIVALENT) 0.5 ML SYR IM ONE (10:00)
== END 2017-08-14 17:28 | disposition home or self-care (01) | DRG 775 ==
LOC: HOBED 00:12 → H2EB 01:54 → H1EA 18:20
PROVIDERS: ADMIT Obstetrics & Gynecology; ATTEND Obstetrics & Gynecology
PROC: 10E0XZZ Delivery of Products of Conception, External Approach (ICD-10-PCS; principal; 2017-08-13)
PROC: 10H07YZ Insertion of Other Device into Products of Conception, Via Natural or Artificial Opening (ICD-10-PCS; 2017-08-13)
PROC: 10907ZC Drainage of Amniotic Fluid, Therapeutic from Products of Conception, Via Natural or Artificial Opening (ICD-10-PCS; 2017-08-13)
DX: O99.02 Anemia complicating childbirth (principal); D64.9 Anemia, unspecified; O69.81X0 Labor and delivery complicated by cord around neck, without compression, not applicable or unspecified; Z37.0 Single live birth; Z3A.39 39 weeks gestation of pregnancy
CPT/HCPCS: 80307; 81001; 85025; 90715; G0481; J2590; J3010; J7120